=== PATIENT | female | born 1980 ===

== ENCOUNTER 2023-05-18 04:52 | Day surgery (SDC) | payer OTHER ==
[~2023-05-18] VITALS: Ht 157.5 cm; Wt 67.1 kg
[~2023-05-18 04:52] MED LIST: ATORVASTATIN CA10 MG PO; CLONAZEPAM0.5 MG PO; GABAPENTIN800 M1 PO; SAVELLA12.5 MG PO
== END 2023-05-18 10:35 | disposition home or self-care (01) ==
LOC: CIR.AMB 04:52
PROVIDERS: ATTEND Specialist
DX: M33.20 Polymyositis, organ involvement unspecified (principal); Z20.822 Contact with and (suspected) exposure to COVID-19